=== PATIENT | female | born 1945 | race Two or more races ===

== ENCOUNTER 2023-04-25 06:17 | Day surgery (SDC) | payer OTHER ==
[~2023-04-25] VITALS: Ht 162.6 cm; Wt 71.7 kg
[~2023-04-25 06:17] MED LIST: CRESTOR20 MG PO; EVISTA60 MG PO; SYNTHROID100 MCG PO; ZOLOFT100 MG PO; [UNRECOGNIZED DRUG - OTHER] PO
== END 2023-04-25 12:35 | disposition home or self-care (01) ==
LOC: CIR.AMB 06:17
PROVIDERS: ATTEND Orthopaedic Surgery Hand Surgery
DX: M19.041 Primary osteoarthritis, right hand (principal); E03.9 Hypothyroidism, unspecified; Z20.822 Contact with and (suspected) exposure to COVID-19